=== PATIENT | male | born 1965 | race Caucasian/White ===

== ENCOUNTER 2018-09-09 09:50 | Day surgery (SDC) | payer OTHER ==
[2018-09-04 14:23] VITALS: BMI 38.0
[2018-09-09 10:37] LABS: BASO # 0.05 K/mm3 (0.0-2.0); BASO % 0.6 % (0.0-3.0); EOS # 0.1 (0.0-0.7); EOS % 1.2 % (1.5-5.0); GRAN # 4.85 (1.4-6.5); HEMOGLOBIN 14.5 g/dL (14.0-18.0); LYMPH # 2.7 (1.2-3.4); LYMPH % 31.7 % (22.0-35.0); MEAN CELL VOLUME 90.7 fl (80.0-105.0); MEAN CORPUSCULAR HEMOGLOBIN 31.3 pg (25.0-35.0); MEAN CORPUSCULAR HGB CONC 34.5 g/dl (31.0-37.0); MEAN PLATELET VOLUME 10.3 fl (7.0-11.0); MONO # 0.7 (0.1-0.6); MONO % 8.5 % (1.0-6.0); RBC 4.63 10^6/uL (3.5-6.1); RED CELL DISTRIBUTION WIDTH 12.6 % (11.5-14.5); WHITE BLOOD COUNT 8.4 10^3/uL (4.5-11.0)
[2018-09-09 10:45] LABS: INR 0.95; PARTIAL THROMBOPLASTIN TIME 35.6 Seconds (25.1-36.5); PROTHROMBIN TIME 10.9 SECONDS (9.4-12.5)
[2018-09-09 11:22] LABS: BLOOD UREA NITROGEN 28 mg/dL (7-21); CALCIUM 9.2 mg/dL (8.4-10.5); GFR NON-AFRICAN AMERICAN 58
[2018-09-09] MEDS ORDERED: Midazolam 2 MG/2 ML VIAL ONE (12:53)
[2018-09-09] MEDS ORDERED: Lidocaine 1% Inj (20ml) ONE (12:54)
[2018-09-09] MEDS ORDERED: Midazolam 2 MG/2 ML VIAL IVP ONE (13:30)
[2018-09-09] MEDS ORDERED: Oxycodone/Acetaminophen 5/325 mg Tab PO PRN (13:48)
[2018-09-09] MEDS ORDERED: Sodium Chloride 0.45% 1,000 ML IV SCH (14:00)
[2018-09-09 14:15] VITALS: RESP 12; TEMP 98
[2018-09-09 14:16] VITALS: PULSE 59
[2018-09-09 14:30] VITALS: O2SAT 95
[2018-09-09 14:59] VITALS: BP 148/73
--- NOTE | 2018-09-09 15:58 | CT ---
PROCEDURE: CT guided proximal right femur biopsy. HISTORY: Sclerotic proximal right femur lesion. Evaluate for malignancy. PHYSICIAN(S): Emir Mijares MD. TECHNIQUE: The relative risks and indications of the procedure were explained to the patient and consent obtained. The patient was placed supine on the CT scanner and preliminary images through the pelvis obtained. Conscious sedation and monitoring were provided throughout the procedure by a nurse. There is a sclerotic 4 cm lesion in the right femoral neck. The lesion is not expansile and the cortices are intact. This may represent some type of chondroid lesion.. A right anterior approach was selected and the area prepped and draped in the usual sterile fashion. 1% Xylocaine was used to anesthetize the skin and soft tissues. An on control needle was advanced to the right femoral neck anteriorly. Its position was confirmed with CT. It was extremely difficult to cross the anterior cortex and into the lesion, even with prolonged use of the drill. Eventually, a single core biopsy was obtained. The patient tolerated the procedure well. The core biopsy was not easily removed from the needle. Attempts at processing in pathology will be performed. IMPRESSION: 1. CT-guided proximal right femur biopsy. 2. This is a 4 cm various sclerotic non destructive lesion in the right femoral neck. The differential includes a chondroid lesion. The specimen may be difficult to process. If necessary, follow-up imaging with CT or MRI can be obtained
== END 2018-09-09 15:30 | disposition home or self-care (01) ==
LOC: SDS 09:50
PROVIDERS: ATTEND Radiology Vascular & Interventional Radiology
DX: M89.8X8 Other specified disorders of bone, other site (principal)
CPT/HCPCS: 20220; 36415; 77012; 80048; 82948; 85025; 85610; 85730; 88307; 88311; J2250; J2405; J3010; J7030